=== PATIENT | male | born 1975 | race Caucasian/White ===

== ENCOUNTER → 2017-07-20 | Day surgery (SDC) | payer BC ==
[~2017-07-20] VITALS: Ht 170.2 cm; Wt 120.0 kg
[~2017-07-20] MED LIST: ASPIRIN325 MG PO; CATAPRES0.1 MG PO; CELEXA40 MG PO; COREG25 MG PO; CPAP INH; EXFORGE HCT 101 EAC2 PO; FLAX OIL1000 MG PO; K-TAB ER20 MEQ PO; LIPITOR80 MG PO; LOPRESSOR25 MG PO; NEXIUM 24HR22.3 MG PO; NORCO 5-325 TA1 EACH PO; WELLBUTRIN XL150 M1 PO
--- NOTE | ~2017-07-20 | OR ---
PATIENT'S NAME: CHIKIS JOHNSON [facility] AGE: 42 Y [address] ROOM: [place] [address] LOCATION: [facility] [place] ADMIT DATE: 07/20/2017 OR/Procedure Report DISCHARGE DATE: FAMILY PHYSICIAN: Miles Dominguez MD ATTENDING PHYSICIAN: Jesus Rosas SURGEON: Jesus Rosas MD CURRICULUM DEVELOPMENT SPECIALIST: DATE OF PROCEDURE: 07/20/2017 PREOPERATIVE DIAGNOSIS: Incarcerated umbilical hernia. POSTOPERATIVE DIAGNOSIS: Incarcerated umbilical hernia. PROCEDURE PERFORMED: Repair of incarcerated umbilical hernia. ANESTHESIA: General. ESTIMATED BLOOD LOSS: 10 mL. SPECIMEN: None. REASON FOR PROCEDURE: The patient is a 42-year-old gentleman, who noticed a painful bulge at his umbilicus, starting a few days ago. On exam, he had a nonreducible tender umbilical hernia. We scheduled him for repair of this. FINDINGS: The patient did have a swollen edematous hernia sac. It contained omentum. The defect was repaired with a 4.3 cm Ventralex patch. PROCEDURE IN DETAIL: The patient was taken to the operating suite and placed in a supine position. After general anesthesia was obtained, the abdomen was prepped with ChloraPrep and sterilely draped. A mixture of lidocaine and Marcaine were infiltrated throughout the area. A 4-5 cm curved infraumbilical incision was made and extended down to the fascia. The hernia sac was then mobilized free of the umbilicus. We then tried reducing this without much success. We went ahead and mobilized the hernia sac at the fascial edges. We were then able to reduce some of the omentum and eventually get the hernia sac pushed back inside. A 4.3 cm Ventralex patch was then placed under the fascia. The fascial defect was then closed with a Prolene suture in 2 figure- of-eight sutures. Care was taken to get small bites of the mesh to help hold this in position. The umbilicus was then sutured back down to the fascia. The incision was closed with a deep subcuticular Monocryl and then a superficial subcuticular Monocryl. Benzoin, Steri-Strips, and gauze dressings were applied. POSTPROCEDURE PLAN: The patient will be discharged home when awake and alert. PATIENT'S NAME: KARYN JOHNSONITH A [facility] AGE: 42 Y [address] ROOM: [place] [address] LOCATION: [facility] [place] ADMIT DATE: 07/20/2017 OR/Procedure Report DISCHARGE DATE: FAMILY PHYSICIAN: Miles Dominguez MD ATTENDING PHYSICIAN: Jesus Rosas He is to avoid any heavy lifting or strenuous activity. He is given a prescription of Chadron for pain control. We will see him in the office in a couple weeks for recheck. MD JENNA SEGURA/breannal /[id number] d: 07/20/17 1804 t: 07/30/17 0755, OPERATIVE SUMMARY
== END ==
LOC: GPOC 07-19 15:00 → GSDC 07:55
PROC: 0WUF0JZ Supplement Abdominal Wall with Synthetic Substitute, Open Approach (ICD-10-PCS; principal; 2017-07-20)
DX: K42.0 Umbilical hernia with obstruction, without gangrene (principal); G47.33 Obstructive sleep apnea (adult) (pediatric); E66.01 Morbid (severe) obesity due to excess calories; Z87.891 Personal history of nicotine dependence; K21.9 Gastro-esophageal reflux disease without esophagitis; I25.10 Atherosclerotic heart disease of native coronary artery without angina pectoris; I10 Essential (primary) hypertension; E78.00 Pure hypercholesterolemia, unspecified; Z98.890 Other specified postprocedural states; Z79.899 Other long term (current) drug therapy; Z79.82 Long term (current) use of aspirin; Z68.41 Body mass index [BMI] 40.0-44.9, adult
CPT/HCPCS: C1781; J0690; J1100; J2001; J2250; J2405; J7120

== ENCOUNTER → 2017-08-05 | Outpatient (CLI) | payer OTHER | END | disposition disaster alternative care site (69) | LOC: GRAD 13:52 | DX: S46.211A Strain of muscle, fascia and tendon of other parts of biceps, right arm, initial encounter (principal) ==